=== PATIENT | female | born 1995 | race Caucasian/White ===

== ENCOUNTER 2017-11-15 22:08 | Emergency (ER) | payer BC, OTHER ==
[~2017-11-15] VITALS: Ht 175.3 cm; Wt 72.6 kg
[2017-11-15 22:22] VITALS: Ht 175.3 cm; Wt 72.6 kg
[2017-11-16 01:13] LABS: BASOPHIL % 0.4 % (0-2); PLATELET COUNT 268 x10^3mcL (130-400); RED CELL DISTRIBUTION WIDTH 13.8 % (11.5-14.5)
[2017-11-16 01:28] LABS: ALBUMIN 3.5 g/dL (3.4-5.0); ALKALINE PHOSPHATASE 48 U/L (46-116); ALT/SGPT 29 U/L (14-59); AST/SGOT 26 U/L (15-37); BILIRUBIN TOTAL 0.41 mg/dL (0.20-1.00); CARBON DIOXIDE 27.2 mmol/L (21-32); CHLORIDE SERUM 103 mmol/L (98-107); CREATININE SERUM 0.7 mg/dL (0.6-1.0); GFR1 > 60 mL/min; GLUCOSE SERUM 100 mg/dL (74-106); SODIUM SERUM 137 mmol/L (136-145); TOTAL PROTEIN, SERUM 6.9 g/dL (6.4-8.2)
[2017-11-16 03:35] VITALS: BP 117/87
== END 2017-11-16 03:35 ==
LOC: ED 22:08
PROVIDERS: Emergency Medicine
DX: F32.9 Major depressive disorder, single episode, unspecified (principal)
CPT/HCPCS: 36415; G0480; Q0163